=== PATIENT | male | born 1990 | race Caucasian/White ===

== ENCOUNTER 2018-11-22 04:15 | Emergency (ER) | payer SELFPAY ==
[2018-11-22] MEDS ORDERED: traMADol 50 MG Tab PO ONE (05:00)
--- NOTE | 2018-11-22 05:06 | EDM.PDOC ---
ED HPI GENERAL MEDICAL PROBLEM - General Chief Complaint: Respiratory Problem Stated Complaint: LT SIDE PAIN Time Seen by Provider: 11/22/18 04:45 Source of Information: Reports: Patient History Limitations: Reports: No Limitations - History of Present Illness INITIAL COMMENTS - FREE TEXT/NARRATIVE: Blake comes into [facility] ED with L lower lateral chest pains this am. Pain is sharp , worse with movement including cough and deep breath, and improves with splinting the L lateral chest. He denies SOB, cough, wheezing, or upper abdominal pain. 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 He is allergic to NSAIDs since age 19, and has tried no analgesics. - Related Data Allergies Allergy/AdvReac Type Severity Reaction Status Date / Time naproxen Allergy Airway Verified 11/22/18 04:34 Tightness Home Meds: Home Meds NK [No Known Home Meds] 11/22/18 [History] Past Medical History - Past Surgical History Musculoskeletal Surgical History: Reports: Other (See Below) Other Musculoskeletal Surgeries/Procedures:: History of shoulder dislocation and wrist injuries. History of chest injury. Occupation as a multi craft maintenance technician. Social & Family History - Tobacco Use Smoking Status *Q: Current Every Day Smoker Years of Tobacco use: 13 Packs/Tins Daily: 0.5 - Alcohol Use Days Per Week of Alcohol Use: 1 Number of Drinks Per Day: 2 Total Drinks Per Week: 2 - Recreational Drug Use Recreational Drug Use: No ED ROS GENERAL - Review of Systems Review Of Systems: ROS reveals no pertinent complaints other than HPI. ED EXAM, GENERAL - Physical Exam Exam: See Below Exam Limited By: No Limitations General Appearance: Alert, WD/WN, Mild Distress, Thin Head: Atraumatic, Normocephalic Neck: Normal Inspection, Supple, Non-Tender, Full Range of Motion Respiratory/Chest: No Respiratory Distress, Lungs Clear, Normal Breath Sounds, No Accessory Muscle Use, Other (intercostal chest tenderness L lateral #6-7, no defect, no rash) Cardiovascular: Normal Peripheral Pulses, Regular Rate, Rhythm, No Murmur GI/Abdominal: Normal Bowel Sounds, Soft, Non-Tender, No Organomegaly, No Distention, No Mass Back Exam: Normal Inspection Extremities: Normal Inspection Neurological: Alert, Oriented, CN II-XII Intact, Normal Cognition, Normal Gait, No Motor/Sensory Deficits Psychiatric: Normal Affect, Normal Mood Skin Exam: Warm, Dry, Intact, Normal Color Lymphatic: No Adenopathy Course - Vital Signs Text/Narrative:: The portable chest x ray was negative. Atypical chest pain with chest wall features. Last Recorded V/S: Last Vital Signs Temp 36.7 C 11/22/18 04:20 Pulse 97 11/22/18 04:20 Resp 18 11/22/18 04:20 BP 166/88 H 11/22/18 04:20 Pulse Ox 100 11/22/18 04:20 - Orders/Labs/Meds Orders: Active Orders 24 hr Category Date Time Status Chest 1V Frontal [CR] Stat Exams 11/22/18 04:30 Taken Departure - Departure Time of Disposition: 05:07 Disposition: Home, Self-Care 01 Condition: Fair Clinical Impression: Atypical chest pain - Discharge Information *PRESCRIPTION DRUG MONITORING PROGRAM REVIEWED*: Not Applicable *COPY OF PRESCRIPTION DRUG MONITORING REPORT IN PATIENT VIDHI: Not Applicable Referrals: PCP,None [Primary Care Provider] - - Problem List & Annotations (1) Atypical chest pain SNOMED Code(s): 228647942 Code(s): R07.89 - OTHER CHEST PAIN Status: Acute Current Visit: Yes Annotation/Comment:: Atypical chest pain. I dispensed Tramadol 50 mg q6 hrs as needed, try heat or cold application, activity as tolerated. - Problem List Review Problem List Initiated/Reviewed/Updated: Yes - My Orders Last 24 Hours: My Active Orders 11/22/18 04:30 Chest 1V Frontal [CR] Stat - Assessment/Plan Last 24 Hours: My Active Orders 11/22/18 04:30 Chest 1V Frontal [CR] Stat Plan: Follow up with PCP if needed.
--- NOTE | 2018-11-22 10:43 | CR ---
INDICATION: Sudden onset left lateral rib pain, worsens with deep breath, has had on and off for past year, worse tonight. CHEST: AP portable upright view of the chest 11/22/18 - no comparisons. Heart, mediastinum, bony thorax, and upper abdomen were unremarkable. An active infiltrate or effusion was not identified. IMPRESSION: No active disease. MTDD
== END 2018-11-22 05:15 | disposition home or self-care (01) ==
LOC: FB.ED 04:15
DX: R07.89 Other chest pain (principal); F17.210 Nicotine dependence, cigarettes, uncomplicated; Z88.8 Allergy status to other drugs, medicaments and biological substances
CPT/HCPCS: 71045; 99283-25; A9270-GY